=== PATIENT | male | born 1980 | race Caucasian/White ===

== ENCOUNTER 2017-09-27 00:34 | Emergency (ER) | payer MEDICAID ==
[2017-09-27 00:53] VITALS: RESP 18; O2SAT 96
--- NOTE | 2017-09-27 01:58 | C.PDOC ---
History Of Present Illness 37 year old male presents to the ER after he felt like his blood pressure was elevated. Patient reports he recently heard valsartan could cause cancer and had his medication switched to losartan. Since then patient has occasionally felt weak, lightheaded, and has had red eyes. Denies chest pain, SOB, weakness, numbness, or change in vision. Time Seen by Provider: 09/27/17 00:59 Chief Complaint (Nursing): High Blood Pressure History Per: Patient History/Exam Limitations: no limitations Onset/Duration Of Symptoms: Hrs Recent travel outside of the [place]: No Past Medical History Reviewed: Historical Data, Nursing Documentation, Vital Signs Vital Signs: Last Vital Signs Temp 98.9 F 09/27/17 00:49 Pulse 107 H 09/27/17 00:49 Resp 18 09/27/17 00:49 BP 126/90 09/27/17 00:49 Pulse Ox 96 09/27/17 01:58 - Medical History PMH: HTN, Kidney Stones, Migraine, Chronic Kidney Disease Family History: States: Unknown Family Hx - Social History Hx Tobacco Use: No Hx Alcohol Use: No Hx Substance Use: No - Immunization History Hx Tetanus Toxoid Vaccination: No Hx Influenza Vaccination: Yes Hx Pneumococcal Vaccination: No Review Of Systems Eyes: Negative for: Vision Change Cardiovascular: Negative for: Chest Pain Respiratory: Negative for: Shortness of Breath Gastrointestinal: Negative for: Vomiting Neurological: Negative for: Weakness, Numbness Physical Exam - Physical Exam Appears: Non-toxic Skin: Normal Color, Warm, Dry Head: Atraumatic, Normacephalic Eye(s): bilateral: Normal Inspection, PERRL, EOMI Oral Mucosa: Moist Neck: Normal, Supple Chest: Symmetrical, No Tenderness Cardiovascular: Rhythm Regular Respiratory: Normal Breath Sounds, No Rales, No Rhonchi, No Wheezing Gastrointestinal/Abdominal: Soft, No Tenderness Extremity: Normal ROM (x4) Neurological/Psych: Oriented x3, Normal Speech Gait: Steady ED Course And Treatment ECG: Interpreted By Me, Viewed By Me ECG Rhythm: Sinus Tachycardia Rate From EC O2 Sat by Pulse Oximetry: 96 (Room air) Pulse Ox Interpretation: Normal Medical Decision Making Medical Decision Making: Patient is resting comfortably in the ER in no acute distress, vitals are stable , he was reassured and advised to follow up with PMD for further evaluation. Disposition - Disposition Referrals: [facility] at [facility] [Outside] Disposition: HOME/ ROUTINE Disposition Time: 01:56 Condition: GOOD Additional Instructions: Follow up with the medical doctor within 1-2 days, Return if worsened. Instructions: High Blood Pressure (DC) Forms: [facility] (Korean) - Clinical Impression Clinical Impression: Essential hypertension - PA / [employer] / Resident Statement MD/DO has reviewed & agrees with the documentation as recorded. - Scribe Statement The provider has reviewed the documentation as recorded by the Scribnathen Manriquez All medical record entries made by the Lyndseyibnathen were at my direction and personally dictated by me. I have reviewed the chart and agree that the record accurately reflects my personal performance of the history, physical exam, medical decision making, and the department course for this patient. I have also personally directed, reviewed, and agree with the discharge instructions and disposition.
[2017-09-27 02:18] VITALS: BP 135/90; PULSE 86; TEMP 98.6
--- NOTE | 2017-09-28 23:59 | CARD ---
APPROVED REPORT Date of service: 09/27/2017 EKG Measurement Heart [id number] VT [id number] <Conclusion> Sinus tachycardia Otherwise normal ECG
== END 2017-09-27 02:19 | disposition home or self-care (01) ==
LOC: C.ER 00:34
DX: I10 Essential (primary) hypertension (principal)